=== PATIENT | female | born 1975 ===

== ENCOUNTER 2024-06-25 06:32 | Day surgery (SDC) | payer MEDICAID ==
[~2024-06-25 06:32] MED LIST: Scopalamine 1mg/3day Transdermal Patch TOP ONE; ceFAZolin 2 GM in Sodium Chloride 0.9% 50 ML IV ONE
[2024-06-25] MEDS: Scopalamine 1mg/3day Transdermal Patch TOP ONE (06:45)
[2024-06-25] MEDS ORDERED: Ropivacaine 0.5% 5 MG/ML 30 ML SDV ONE (07:10)
[2024-06-25] MEDS: Lactated Ringers 1,000 ML IV SCH (07:10)
[2024-06-25] MEDS ORDERED: Bupivacaine 0.25% 30 ML SDV ONE (07:10)
[2024-06-25] MEDS ORDERED: Rocuronium Bromide 50 MG/5 ML Syringe ONE ×2 (07:17→08:52)
[2024-06-25] MEDS ORDERED: Sugammadex Sodium 200 MG/2 ML VIAL IV ONE (07:17)
[2024-06-25] MEDS ORDERED: Ondansetron 4 MG/2 ML SDV ONE (07:17)
[2024-06-25] MEDS ORDERED: Lidocaine 2% 5 ML SDV ONE (07:17)
[2024-06-25] MEDS ORDERED: Propofol 200 MG/20 ML SDV ONE (07:17)
[2024-06-25] MEDS ORDERED: Midazolam 1 MG/ML 2 ML SDV ONE (07:17)
[2024-06-25] MEDS ORDERED: fentaNYL 100 MCG/2 ML SDV ONE ×2 (07:17→08:53)
[2024-06-25] MEDS ORDERED: Water For Injection, Sterile 20 ML ONE (07:21)
[2024-06-25] MEDS ORDERED: dexmedeTOMIDine HCl 200 MCG/2 ML SDV ONE (07:21)
[2024-06-25] MEDS ORDERED: ceFAZolin 1 GM Vial ONE ×2 (07:27→08:24)
[2024-06-25] MEDS ORDERED: Bupivacaine 0.5% 10 ML SDV ONE (07:27)
[2024-06-25] MEDS ORDERED: Albuterol 0.083% 2.5 MG/3 ML Neb Soln NEB PRN (07:32)
[2024-06-25] MEDS ORDERED: Morphine 2 MG/ML SYRINGE IVPUSH PRN (07:32)
[2024-06-25] MEDS ORDERED: Ondansetron 4 MG/2 ML SDV IVPUSH PRN (07:32)
[2024-06-25] MEDS ORDERED: Metoclopramide 10 MG/2 ML SDV IVPUSH PRN (07:32)
[2024-06-25] MEDS ORDERED: Naloxone 0.4 MG/ML SDV IVPUSH PRN (07:32)
[2024-06-25] MEDS ORDERED: droPERidol 5 MG/2 ML SDV IVPUSH PRN (07:32)
[2024-06-25] MEDS ORDERED: Indocyanine Green 25 MG SDV ONE (08:19)
[2024-06-25] MEDS ORDERED: Glycopyrrolate 0.2 MG/ML SDV ONE (08:38)
[2024-06-25] MEDS ORDERED: Dexamethasone 4 MG/ML 5 ML MDV ONE (08:57)
[2024-06-25] MEDS ORDERED: Morphine 4 MG/ML Syringe IVPUSH PRN (09:49)
[2024-06-25] MEDS: HYDROmorphone 1 MG/ML Syringe IVPUSH PRN (09:53)
[2024-06-25] MEDS ORDERED: Ketorolac 30 MG/ML SDV ONE (09:53)
[2024-06-25] MEDS ORDERED: Lactated Ringers 1,000 ML IV SCH (10:00)
[2024-06-25] MEDS: fentaNYL 50 MCG/ML SDV IVPUSH PRN (10:04)
[2024-06-25] MEDS: Acetaminophen/HYDROcodone 325-5 MG Tab PO PRN (11:26)
[2024-06-25 14:09] VITALS: BP 137/80; PULSE 74
== END 2024-06-25 13:00 | disposition home or self-care (01) ==
LOC: MW.SDS 06:32
PROVIDERS: ATTEND Surgery
DX: K80.10 Calculus of gallbladder with chronic cholecystitis without obstruction (principal); I10 Essential (primary) hypertension; K21.9 Gastro-esophageal reflux disease without esophagitis; K90.49 Malabsorption due to intolerance, not elsewhere classified; E66.01 Morbid (severe) obesity due to excess calories; Z68.37 Body mass index [BMI] 37.0-37.9, adult; F17.290 Nicotine dependence, other tobacco product, uncomplicated; Z79.899 Other long term (current) drug therapy
CPT/HCPCS: 47562; 64488; A9270; J0131; J0665; J0690; J1100; J1170; J1596; J1885; J2250; J2704; J2795; J3010; J3490; J7120; 00790; J2405